=== PATIENT | male | born 1985 | race Caucasian/White ===

== ENCOUNTER 2016-05-14 19:58 | Emergency (ER) | payer SELFPAY ==
--- NOTE | 2016-05-14 21:03 | ED NURSING NOTES ---
Clinical Report - Nurses [facility] [address] [place] [address] 05/14/2016 19:59 Patient: BRIGITTE RIVAS TRIAGE Triage time 20:May 14 2016. Acuity: LEVEL 4. Chief Complaint: LACERATION. 20:08 05/14/16. SEPSIS SCREEN: Sepsis Screen. Negative (no infection suspected/documented). MANUELA COMA SCORE: [place] Coma Scale: 15- eyes open spontaneously (4); best verbal response- oriented x 4 (5); best motor response- obeys commands (6). --20:15 Ioana Henry R.N. 20:08 05/14/16. BP: 134/84. HR: 70. RR: 16. O2 saturation: 100%. Temp: 98.3 F. Pain level now: 5/10. --20:15 Ioana Henry R.N. 20:16 05/14/16. --20:16 Ioana Henry R.N. Weight: 99.7 kg stated. Height/Length: 71 inches Per Patient. BMI: 30.7. --20:08 Ioana Henry R.N. Medications None. --20:12 Ioana Henry R.N. Medication/allergy information source: the patient. --20:15 Ioana Henry R.N. Allergies None. --20:12 Ioana Henry R.N. History Arrived by private vehicle. Historian: patient. Accompanied by family. Location of injuries: right little finger. ( Was handling a pocket knife and when he tried to close it , sustained laceration to MIP joint palm side of right 5th finger. Bleeding is controlled). 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 SOCIAL HX: Heavy tobacco smoker (cigarette)- 1 pack per day. No alcohol use or drug use. No infectious disease exposure. ABUSE ASSESSMENT: No report of abuse. SELF HARM ASSESSMENT: A self harm assessment was performed. The patient answered "no" to the question "Have you recently felt down, depressed, or hopeless?", "Have you noticed less interest or pleasure in doing things?", "Do you have thoughts of harming or killing yourself?", "Are you here because you tried to hurt yourself?", "Have you ever tried to hurt yourself before today?", "Have you recently had thoughts about harming or killing others?" and "Do you have any dangerous items in your possession?". NUTRITIONAL RISK ASSESSMENT: The nutritional risk assessment revealed no deficiencies. FUNCTIONAL ASSESSMENT: Functional assessment: no impairments noted. LEARNING NEEDS ASSESSMENT: The learning needs assessment revealed no barriers. SKIN INTEGRITY ASSESSMENT: Skin integrity risk assessment completed. No skin integrity risk identified. --20:15 Ioana Henry R.N. PAST MEDICAL HX: Tetanus status: up-to-date. --20:16 Ioana Henry R.N. PROBLEMS: no known problems. ADDITIONAL SURGERIES: no known surgeries. Interventions ID band on patient. --20:15 Ioana Henry R.N. PHYSICAL ASSESSMENT 20:08 05/14/16. GENERAL / NEURO / PSYCH: Alert. Oriented X 4. HEENT: Pupils equal, round and reactive to light. EXTREMITIES: Extremities exhibit normal ROM. Neuro-vascular status intact to the extremity. Right little finger: tenderness and 1.0 cm laceration. SKIN: Skin is warm and dry. --21:18 Ioana Henry R.N. NURSING PROGRESS NOTES Applied clean bulky dressing consisting of 4x4 gauze. Secured with tube gauze. --21:14 Bella Girard, ARI Tech1. DISPOSITION / DISCHARGE 21:19 05/14/16. Departure time: 21:May 14 2016. Condition at departure: improved and stable. The goals identified in the patient's plan of care were met. No learning barriers present. Patient verbalized understanding. Written instructions provided in Palauan. The patient was discharged home and accompanied by spouse. He left the Emergency Department ambulatory and via private vehicle. Spouse driving. --21:19 Ioana Henry R.N. 20:08 05/14/16. BP: 134/84. HR: 70. RR: 16. O2 saturation: 100%. Temp: 98.3 F. Pain level now: 07/19. --21:19 Ioana Henry R.N. Locked/Released at 05/14/2016 21:19 by Ioana Henry R.N.
--- NOTE | 2016-05-14 21:03 | ED NURSING NOTES ---
Clinical Report - Nurses [facility] [address] [place] [address] 05/14/2016 19:59 Patient: BRIGITTE RIVAS TRIAGE Triage time 20:May 14 2016. Acuity: LEVEL 4. Chief Complaint: LACERATION. 20:08 05/14/16. SEPSIS SCREEN: Sepsis Screen. Negative (no infection suspected/documented). MANUELA COMA SCORE: [place] Coma Scale: 15- eyes open spontaneously (4); best verbal response- oriented x 4 (5); best motor response- obeys commands (6). --20:15 Ioana Henry R.N. 20:08 05/14/16. BP: 134/84. HR: 70. RR: 16. O2 saturation: 100%. Temp: 98.3 F. Pain level now: 5/10. --20:15 Ioana Henry R.N. 20:16 05/14/16. --20:16 Ioana Henry R.N. Weight: 99.7 kg stated. Height/Length: 71 inches Per Patient. BMI: 30.7. --20:08 Ioana Henry R.N. Medications None. --20:12 Ioana Henry R.N. Medication/allergy information source: the patient. --20:15 Ioana Henry R.N. Allergies None. --20:12 Ioana Henry R.N. History Arrived by private vehicle. Historian: patient. Accompanied by family. Location of injuries: right little finger. ( Was handling a pocket knife and when he tried to close it , sustained laceration to MIP joint palm side of right 5th finger. Bleeding is controlled). 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 SOCIAL HX: Heavy tobacco smoker (cigarette)- 1 pack per day. No alcohol use or drug use. No infectious disease exposure. ABUSE ASSESSMENT: No report of abuse. SELF HARM ASSESSMENT: A self harm assessment was performed. The patient answered "no" to the question "Have you recently felt down, depressed, or hopeless?", "Have you noticed less interest or pleasure in doing things?", "Do you have thoughts of harming or killing yourself?", "Are you here because you tried to hurt yourself?", "Have you ever tried to hurt yourself before today?", "Have you recently had thoughts about harming or killing others?" and "Do you have any dangerous items in your possession?". NUTRITIONAL RISK ASSESSMENT: The nutritional risk assessment revealed no deficiencies. FUNCTIONAL ASSESSMENT: Functional assessment: no impairments noted. LEARNING NEEDS ASSESSMENT: The learning needs assessment revealed no barriers. SKIN INTEGRITY ASSESSMENT: Skin integrity risk assessment completed. No skin integrity risk identified. --20:15 Ioana Henry R.N. PAST MEDICAL HX: Tetanus status: up-to-date. --20:16 Ioana Henry R.N. PROBLEMS: no known problems. ADDITIONAL SURGERIES: no known surgeries. Interventions ID band on patient. --20:15 Ioana Henry R.N. PHYSICAL ASSESSMENT 20:08 05/14/16. GENERAL / NEURO / PSYCH: Alert. Oriented X 4. HEENT: Pupils equal, round and reactive to light. EXTREMITIES: Extremities exhibit normal ROM. Neuro-vascular status intact to the extremity. Right little finger: tenderness and 1.0 cm laceration. SKIN: Skin is warm and dry. --21:18 Ioana Henry R.N. NURSING PROGRESS NOTES Applied clean bulky dressing consisting of 4x4 gauze. Secured with tube gauze. --21:14 Bella Girard, ARI Tech1. DISPOSITION / DISCHARGE 21:19 05/14/16. Departure time: 21:May 14 2016. Condition at departure: improved and stable. The goals identified in the patient's plan of care were met. No learning barriers present. Patient verbalized understanding. Written instructions provided in Filipino. The patient was discharged home and accompanied by spouse. He left the Emergency Department ambulatory and via private vehicle. Spouse driving. --21:19 Ioana Henry R.N. 20:08 05/14/16. BP: 134/84. HR: 70. RR: 16. O2 saturation: 100%. Temp: 98.3 F. Pain level now: 07/19. --21:19 Ioana Henry R.N. Locked/Released at 05/14/2016 21:19 by Ioana Henry R.N.
--- NOTE | 2016-05-14 21:03 | ED CLINICAL REPORT ---
Clinical Report - Physicians/Mid Levels [facility] [address] [place] [address] 05/14/2016 19:59 Patient: BRIGITTE RIVAS Time Seen: 20:48; initial patient contact, initial documentation, patient care assumed. Arrived- By private vehicle. Historian- patient. HISTORY OF PRESENT ILLNESS Chief Complaint: Injury to the right 5th (little) finger. The injury happened just prior to arrival. Occurred at home. The patient sustained a laceration from a knife. Patient is experiencing mild pain. Patient denies injury to the head or neck. No other injury. ( attempting close pocket knife and cut finger). REVIEW OF SYSTEMS The patient sustained a laceration. He has had numbness, (c/o tip of finger being numb). No swelling, tingling or weakness. All systems otherwise negative, except as recorded above. PAST HISTORY Negative. The patient's dominant hand is the right. Tetanus immunization status is up-to-date. SOCIAL HISTORY Heavy tobacco smoker. No alcohol use or drug use. No recent travel. Is a local resident. FAMILY HISTORY No significant family medical history. ADDITIONAL NOTES The nursing notes have been reviewed with agreement regarding the chief complaint, HPI, ROS, PMH and patient medications and allergies. PHYSICAL EXAM Vital Signs: 05/14/2016 20:08 BP: 134/84. HR: 70. RR: 16. O2 saturation: 100%. Temp: 98.3 F. Pain level now: 5/10. Have been reviewed as normal and appear to be correct. Appearance: Alert. Oriented X3. No acute distress. Head: Head atraumatic. Eyes: Pupils equal, round and reactive to light. Eyes normal inspection. Respiratory: No respiratory distress. Skin: Skin warm and dry. Skin intact. Extremities: Hand injury present. Right little finger: mild tenderness and subcutaneous 1.0 cm laceration of the volar aspect and PIP joint; limited movement secondary to pain (diminished flexion). Neurovascular intact distally. No erythema, swelling, abrasion, ecchymosis or puncture wound. No foreign body or deformity. No subungual hematoma or amputation present. No wrist injury. Hand and wrist exam otherwise negative. Extremities otherwise negative. Neuro, Vascular and Tendons: Vascular status intact. Sensation intact. Motor intact. Tendon function intact. Neuro: Oriented X 3. No motor deficit. No sensory deficit. Note: isolated injury to finger. PROGRESS AND PROCEDURES Course of Care: sutures recommended, pt declining. Patient counseled in person regarding the patient's stable condition and diagnosis. Differential Diagnosis: Other possible considerations: finger lac, fb, tendon injury. Above considerations are based on history and physical exam. Differential diagnosis was discussed with patient. Disposition: Discharged home in good and improved condition (21:03). Condition: good and stable. CLINICAL IMPRESSION Single deep laceration to the right little finger.Treatment of laceration not delayed. No infection, foreign body present or right fingernail injury. INSTRUCTIONS Protect wound and keep wound area clean. Change dressing twice daily. Soak in warm soapy water twice daily. Apply bacitracin twice daily. Warnings: GENERAL WARNINGS: Return or contact your physician immediately if your condition worsens or changes unexpectedly, if not improving as expected, or if other problems arise. Specifically return if problem worsens. Follow-up: Follow up with your doctor in about three days even if well and for wound check. Call for an appointment. Summary of care provided to patient. Understanding of the discharge instructions verbalized by patient. (Electronically signed by Carolyn Stroud A.R.N.P. 05/14/2016 21:42)
--- NOTE | 2016-05-14 21:42 | ED MED RECONCILIATION SUMMARY ---
Patient: BRIGITTE RIVAS Medication Reconciliation Report [facility] VisitID: [id number] [address] [place] [address] 30y, M Registration Date/Time: 05/14/2016 Weight: 99.7 kg Height/Length: 71 in. BMI: 30.7 ALLERGIES: None The patient's Home Medications are listed below: NONE. The source(s) of the original Home Medication information: patient The following Medications were given to the patient in the Emergency Department: None. The following Medications were prescribed to the patient: None.
--- NOTE | 2016-05-14 21:42 | ED MAR SUMMARY ---
..... Medication Administration Record [facility] [address], [place] [id number] Patient: BRIGITTE RIVAS Visit ID: [id number] 30y, M Weight: 99.7 kg Height/Length: 71 in BMI: 30.7 ALLERGIES: None
--- NOTE | 2016-05-14 21:42 | ED DISCHARGE INSTRUCTIONS ---
Patient: BRIGITTE RIVAS General Instructions [facility] VisitID: [id number] [place] [address] 30y, M Registration Date/Time: 05/14/2016 Single deep laceration to the right little finger.Treatment of laceration not delayed. No infection, foreign body present or right fingernail injury. INSTRUCTIONS Protect wound and keep wound area clean. Change dressing twice daily. Soak in warm soapy water twice daily. Apply bacitracin twice daily. Warnings: GENERAL WARNINGS: Return or contact your physician immediately if your condition worsens or changes unexpectedly, if not improving as expected, or if other problems arise. Specifically return if problem worsens. Follow-up: Follow up with your doctor in about three days even if well and for wound check. Call for an appointment. Summary of care provided to patient. Understanding of the discharge instructions verbalized by patient. ADDITIONAL INFORMATION Laceration (All Closures) Alaceration is a cut through the skin. This will usually require stitches (sutures) or john if it is deep. Minor cuts may be treated with a surgical tape closure orskin glue. Home care The following guidelines will help you care for your laceration at home: Extremity, face, or trunk wounds Keep the wound clean and dry. If a bandage was applied and it becomes wet or dirty, replace it. Otherwise, leave it in place for the first 24 hours. If stitches or john were used, clean the wound daily. After removing the bandage, wash the area with soap and water. Use a wet cotton swab to loosen and remove any blood or crust that forms. The doctor may prescribe an antibiotic cream or ointment to prevent infection. Do not stop taking this medication until you have finished the prescribed course or the doctor tells you to stop. The doctor may also prescribe medications for pain. Follow the doctors instructions for taking these medications. You may remove the bandage to shower as usual after the first 24 hours, but do not soak the area in water (no swimming) until the stitches or john are removed. If surgical tape was used, keep the area clean and dry. If it becomes wet, blot it dry with a towel. If skin glue was used, do not scratch, rub, or pick at the adhesive film. Do not place tape directly over the film. Do not apply liquid, ointment, or creams to the wound while the film is in place. Do not clean the wound with peroxide and do not apply ointments. Avoid activities that cause heavy sweating until the film has fallen off. Protect the wound from prolonged exposure to sunlight or tanning lamps. You may shower as usual but do not soak the wound in water (no baths or swimming). The film will fall off by itself in 510 days. Scalp wounds During the first two days, you may carefully rinse your hair in the shower to remove blood, glass or dirt particles. After two days, you may shower and shampoo your hair normally. Do not soak your scalp in the tub or go swimming until the stitches or john have been removed. Talk with your doctor before applying any antibiotic ointment to the wound. Mouth wounds Eat soft foods to reduce pain. If the cut is inside of your mouth, clean by rinsing after each meal and at bedtime with a mixture of equal parts water and hydrogen peroxide (do not swallow!). Or, you can use a cotton swab to directly apply hydrogen peroxide onto the cut. Mouth wounds can be painful when eating. You may use an [id number] local numbing solution for pain relief. If this is not available, you may use any numbing solution for teething babies. You may apply this directly to the sores with a cotton-tip swab or with your finger. Follow-up care Follow up with your health care provider. Most skin wounds heal within ten days. Mouth and facial wounds heal within five days. However, even with proper treatment, a wound infection may sometimes occur. Therefore, you should check the wound daily for signs of infection listed below. Stitches should be removed from the face within five days; stitches and john should be removed from other parts of the body within 714 days. If dissolving stitches were used in the mouth, these will fall out or dissolve without the need for removal. If tape closures were used, remove them yourself if they have not fallen off after 7 days. Ifskin glue was used, the film will fall off by itself in 510 days. When to seek medical care Get prompt medical attention if any of these occur: Bleeding not controlled by direct pressure Signs of infection, including increasing pain in the wound, increasing wound redness or swelling, or pus coming from the wound Fever of 100.4F (38C) or higher, or as directed by your health care provider Stitches or john come apart or fall out or surgical tape falls off before 7 days Wound edges re-open Laceration, Extremity (Sutures, John, Or Tape) A laceration is a cut through the skin. This will usually require stitches (sutures) or john if it is deep. Minor cuts may be treated with surgical tape closures. Home care The following guidelines will help you care for your laceration at home: Keep the wound clean and dry. If a bandage was applied and it becomes wet or dirty, replace it. Otherwise, leave it in place for the first 24 hours, then change it once a day or as directed. If stitches or john were used, clean the wound daily: After removing the bandage, wash the area with soap and water. Use a wet cotton swab to loosen and remove any blood or crust that forms. After cleaning, keep the wound clean and dry. Talk with your doctor before applying any antibiotic ointment to the wound. Reapply the bandage. You may remove the bandage to shower as usual after the first 24 hours, but do not soak the area in water (no swimming) until the stitches or john are removed. If surgical tape closures were used, keep the area clean and dry. If it becomes wet, blot it dry with a towel. The doctor may prescribe an antibiotic cream or ointment to prevent infection. Do not stop taking this medication until you have finished the prescribed course or the doctor tells you to stop. The doctor may also prescribe medications for pain. Follow the doctors instructions for taking these medications. If you have chronic liver or kidney disease or ever had a stomach ulcer or GI bleeding, talk with your doctor before using these medicines. Follow-up care Follow up with your health care provider. Most skin wounds heal within ten days. However, an infection may sometimes occur despite proper treatment. Therefore, check the wound daily for the signs of infection listed below. Stitches and john should be removed within 714 days. If surgical tape closures were used, you may remove them after 10 days, if they have not fallen off by then. Notify your doctor if you notice persistent numbness or weakness in the injured extremity. (Note:A radiologist will review any X-rays that were taken. We will notify you of any new findings that may affect your care.) When to seek medical care Get prompt medical attention if any of these occur: Increasing pain in the wound Redness, swelling, or pus coming from the wound Fever of 100.4F (38C) or higher, or as directed by your health care provider If stitches or john come apart or fall out before your next appointment If the surgical tape closures fall off within seven days, or the wound edges re-open Bleeding not controlled by direct pressure You have been given the following additional information: Laceration, All Laceration, Extrem (Suture, Staple, Or Tape) (Electronically signed by Carolyn Stroud A.R.N.P. 05/14/2016 21:42)
--- NOTE | 2016-05-14 21:42 | ED MAR SUMMARY ---
..... Medication Administration Record [facility] [address], [place] [id number] Patient: BRIGITTE RIVAS Visit ID: [id number] 30y, M Weight: 99.7 kg Height/Length: 71 in BMI: 30.7 ALLERGIES: None
--- NOTE | 2016-05-14 21:42 | ED MED RECONCILIATION SUMMARY ---
Patient: BRIGITTE RIVAS Medication Reconciliation Report [facility] VisitID: [id number] [address] [place] [address] 30y, M Registration Date/Time: 05/14/2016 Weight: 99.7 kg Height/Length: 71 in. BMI: 30.7 ALLERGIES: None The patient's Home Medications are listed below: NONE. The source(s) of the original Home Medication information: patient The following Medications were given to the patient in the Emergency Department: None. The following Medications were prescribed to the patient: None.
== END 2016-05-14 21:19 | disposition home or self-care (01) ==
LOC: ED SRH 19:58
DX: S61.216A Laceration without foreign body of right little finger without damage to nail, initial encounter (principal); W26.0XXA Contact with knife, initial encounter; Y92.019 Unspecified place in single-family (private) house as the place of occurrence of the external cause; Y99.8 Other external cause status; F17.210 Nicotine dependence, cigarettes, uncomplicated